=== PATIENT | female | born 1985 | race Two or more races ===

== ENCOUNTER → 2016-11-01 | Outpatient (CLI) | payer OTHER ==
--- NOTE | ~2016-11-01 | US77 ---
[facility] A Service of [facility] RADIOLOGY TEXT RESULTS PATIENT: ADRIANNA REYES LOCATION: [facility] : 89 UNIT #: [id number] AGE: [address]: Iggy Crisostomo MD SEX: F ORDER DR: [id number] [facility] [address] [place], [place] [address] [id number] O MR#: [id number] Acc #: [id number] NAME: ADRIANNA REYES : 1985 SEX: F STUDY DATE/TIME: 11/01/2016 14:42 UNIT: [facility] ROOM: STUDY DESCRIPTION: US Kidney Bilateral Complete Attending Physician: Iggy Crisostomo M.D. Referring Physician: Iggy Crisostomo M.D. Ordering Physician: Iggy Crisostomo M.D. Primary Care Physician: Vaughn Quintero M.D. MEDICAL IMAGING REPORT This report is preliminary unless electronic signature is present EXAM Renal ultrasound. DATE OF EXAM 11/01/2016 INDICATIONS Hematuria today. PROCEDURE Moses-scale and Doppler imaging of the kidneys and bladder. COMPARISON None. FINDINGS Right kidney measures 10.3 cm in length. The left kidney measures 10 cm in length. No hydronephrosis is seen. Dictated by... Boo Frank M.D. THIS IS AN ELECTRONICALLY VERIFIED REPORT Boo Frank M.D. at 11/04/2016 7:40 AM JORDAN/shanna TD: 11/01/2016 23:21 JOB #: [id number] MEDICAL IMAGING REPORT Page 1 of 1 COPY
== END | disposition home or self-care (01) ==
LOC: CGUS 14:15
DX: R31.9 Hematuria, unspecified (principal)
CPT/HCPCS: 36415; 76770; 84703